=== PATIENT | male | born 1980 | race Hispanic/Latino ===

== ENCOUNTER 2019-02-25 05:49 | Day surgery (SDC) | payer MEDICARE ==
[~2019-02-25] VITALS: Ht 185.4 cm; Wt 94.1 kg
[2019-02-25] VITALS (19 sets, daily range): BP systolic 99–140; BP diastolic 57–81
[2019-02-25] MEDS: CEFUROXIME SODIUM 1.5 GM VIAL IVP SCH ×2 (06:30→08:00)
[2019-02-25] MEDS ORDERED: LEVO25TA54 PO (06:50)
[2019-02-25] MEDS ORDERED: INSLAN SQ (06:50)
[2019-02-25] MEDS ORDERED: CARV25TA PO (06:50)
[2019-02-25] MEDS ORDERED: FAMO20TA8 PO (06:50)
[2019-02-25] MEDS ORDERED: ASCO500C18 PO (06:50)
[2019-02-25] MEDS ORDERED: ATOR-2 PO (06:50)
[2019-02-25] MEDS ORDERED: AMLO10TA7 PO (06:50)
[2019-02-25] MEDS ORDERED: FOLI1TAB85 PO (06:50)
[2019-02-25] MEDS ORDERED: LEVE500T98 PO (06:50)
[2019-02-25] MEDS ORDERED: ASPI-555 PO (06:50)
[2019-02-25] MEDS ORDERED: SODIUM CHLORIDE 0.9% 1000ML 1,000 ML IV ONE (06:55)
[2019-02-25 06:59] LABS: EOSINOPHILS % (AUTO) 4.9 % (0.0-8.0); HEMATOCRIT 41.4 % (42-54); MEAN CORPUSCULAR HEMOGLOBIN 30.4 pg (27.0-33.0); MEAN CORPUSCULAR HGB CONC 32.8 g/dL (32.0-36.0); MEAN CORPUSCULAR VOLUME 92.8 fL (79-99); MONOCYTES % (AUTO) 7.3 % (3.0-13.0); NEUTROPHILS % (AUTO) 53.8 % (40.0-77.0); PLATELET COUNT (AUTO) 222 K/uL (130-400); RED BLOOD CELL COUNT(AUTO) 4.46 MIL/uL (4.50-6.20); RED CELL DISTRIBUTION WIDTH 16.3 % (11.0-15.5); WHITE BLOOD COUNT (AUTO) 7.1 K/uL (4.8-10.8)
[2019-02-25 07:07] LABS: POTASSIUM 4.1 mmol/L (3.5-5.1)
[2019-02-25 07:08] LABS: HEMOGLOBIN A1C 5.6 % (4.0-6.0)
[2019-02-25 07:09] LABS: CREATININE 8.5 mg/dL (0.5-1.5)
[2019-02-25] MEDS ORDERED: BACITRACIN 50,000 UNIT VIAL ONE (07:09)
[2019-02-25] MEDS ORDERED: PAPAVERINE HCL 30 MG/ML 2ML VIAL ONE (07:09)
[2019-02-25 07:10] LABS: INR 0.97 (0.85-1.15); PROTHROMBIN TIME 10.2 SEC (9.6-11.6)
[2019-02-25] MEDS ORDERED: ROPIVACAINE 0.5% 5MG/ML 30ML IJ ONE (07:38)
[2019-02-25] MEDS ORDERED: DEXAMETHASONE SOD PHOSPHATE 10MG/ML 1ML VIAL ONE (07:39)
[2019-02-25] MEDS ORDERED: LIDOCAINE PF 2% 5ML ABBOJECT ONE (07:39)
[2019-02-25] MEDS ORDERED: SUCCINYLCHOLINE 200MG/10ML SYR ONE (07:39)
[2019-02-25] MEDS ORDERED: FENTANYL CITRATE PF 50 MCG/1 ML 2ML VIAL ONE ×2 (07:40→08:38)
[2019-02-25] MEDS ORDERED: ONDANSETRON HCL 4 MG/2 ML VIAL ONE (07:40)
[2019-02-25] MEDS ORDERED: PROPOFOL 10 MG/ML 20ML VIAL IV ONE (07:40)
[2019-02-25] MEDS ORDERED: MIDAZOLAM HCL 1 MG/ML 2ML VIAL ONE ×3 (07:40→08:40)
[2019-02-25] MEDS ORDERED: GLYCOPYRROLATE 1 MG/5 ML SYRINGE ONE (07:40)
[2019-02-25] MEDS ORDERED: ROCURONIUM 10MG/1ML SYR 10 MG/ML ML ONE (07:40)
[2019-02-25] MEDS ORDERED: NEOSTIGMINE 5MG/5ML SYR IV ONE (07:40)
[2019-02-25] MEDS ORDERED: LIDOCAINE HCL 1% MDV 50ML VIAL ONE (08:21)
--- NOTE | 2019-02-25 11:30 | NUR ---
NASIR DRAIN EMPTIED AND REMOVED UNDER STERILE TECHNIQUE, STERILE NON ADHESIVE DRESSING APPLIED. NO BLEEDING NOTED.
== END 2019-02-25 12:30 ==
LOC: DAH 05:49
PROVIDERS: ATTEND Thoracic Surgery (Cardiothoracic Vascular Surgery)
DX: I12.0 Hypertensive chronic kidney disease with stage 5 chronic kidney disease or end stage renal disease (principal); E11.22 Type 2 diabetes mellitus with diabetic chronic kidney disease; N18.6 End stage renal disease; E03.9 Hypothyroidism, unspecified; Z86.73 Personal history of transient ischemic attack (TIA), and cerebral infarction without residual deficits; Z79.899 Other long term (current) drug therapy; Z99.2 Dependence on renal dialysis; Z98.890 Other specified postprocedural states; Z89.412 Acquired absence of left great toe; Z79.82 Long term (current) use of aspirin; Z79.4 Long term (current) use of insulin; Z83.3 Family history of diabetes mellitus; Z82.49 Family history of ischemic heart disease and other diseases of the circulatory system
CPT/HCPCS: 36415; 36819; 64415; 80048; 82948; 83036; 85025; 85610; 85730; A4215; A4221; A4222; A4223; A4649; A4663; A6207; C1713 ×2; G0168; J0330; J0697; J1100; J1644; J2001; J2250 ×3; J2405; J2704; J2710; J2795; J3010 ×2; J3490 ×2; J7030; J7040; J2440